=== PATIENT | male | born 1935 | race Caucasian/White ===

== ENCOUNTER 2024-07-13 11:23 | Inpatient (IN) | payer MEDICARE ==
[2024-07-13 12:00] LABS: #Basophils Less than 0.03 10x3/uL (0.0-0.2); #Eosinophils Less than 0.03 10x3/uL (0.0-0.7); %Basophils 0.1 % (0.0-1.0); %Lymphocytes 6.3 % (21.0-51.0); %Monocytes 7.1 % (0.0-10.0); %Neutrophils 85.9 % (42.0-75.0); Hematocrit 53.2 % (42.0-52.0); Hemoglobin 16.7 g/dL (14.0-18.0); Mean Corpuscular HGB CONC 31.4 g/dL (32.0-36.0); Mean Corpuscular Volume 108.4 fL (78.0-98.0); Mean Platelet Volume 10.8 fL (7.4-10.4); Platelet Count 277 10x3/uL (130-400); RBC Distribution Width 14.6 % (11.5-14.5); Red Blood Cell (RBC) Count 4.91 mill/uL (4.70-6.10)
[2024-07-13 12:14] LABS: ALT (SGPT) 253 U/L (8-55); AST (SGOT) 241 U/L (5-34); Albumin 3.6 g/dL (3.4-4.8); Alkaline Phosphatase 105 U/L (40-110); Anion Gap 19 mmol/L (10-20); BUN (Urea Nitrogen) 61 mg/dL (8.4-25.7); Bilirubin, Total 2.2 mg/dL (0.2-1.2); Calc. Creatinine Clearance 0 mL/min (70-130); Calcium 9.1 mg/dL (7.8-10.44); Carbon Dioxide 17 mmol/L (23-31); Chloride 109 mmol/L (98-107); Estimated GFR 25; Globulin 2.6 g/dL (2.4-3.5); Glucose 177 mg/dL (83-110); Potassium 4.3 mmol/L (3.5-5.1); Protein, Total 6.2 g/dL (5.8-8.1); Sodium 141 mmol/L (136-145)
[2024-07-13 12:26] LABS: Troponin I 0.358 ng/mL (< 0.028)
[2024-07-13] MEDS ORDERED: Furosemide 40 MG (4 mL) VIAL ONE (13:30)
[2024-07-13] MEDS ORDERED: Aspirin Chewable 81 MG TAB ONE (13:30)
[2024-07-13] MEDS ORDERED: Nitroglycerin 2% Ointment 1 INCH/1 GM Packet ONE (14:47)
[2024-07-13] MEDS ORDERED: Acetaminophen 650 MG Suppository PR PRN (15:14)
[2024-07-13] MEDS ORDERED: Acetaminophen 325 MG TAB PO PRN (15:14)
[2024-07-13] MEDS ORDERED: Ondansetron ODT 4 MG TAB PO PRN (15:14)
[2024-07-13] MEDS ORDERED: Ondansetron PF 4 MG/2 ML Vial IVP PRN (15:14)
[2024-07-13] MEDS ORDERED: Heparin 25,000 units/D5W 500 ML IVPB SCH (15:15)
[2024-07-13] MEDS ORDERED: Heparin 10,000 UNITS/ 10 ML VIAL SLOW IVP SCH (15:15)
[2024-07-13] MEDS ORDERED: Heparin 25,000 units/D5W 500 ML ONE (15:31)
[2024-07-13] MEDS ORDERED: Heparin 5,000 UNITS/ML VIAL ONE (15:31)
[2024-07-13 16:09] LABS: Troponin I 0.396 ng/mL (< 0.028)
[2024-07-13 16:46] VITALS: BMI 27.8
[2024-07-13] MEDS ORDERED: Enoxaparin 100 MG (1 mL) SYRINGE SC SCH ×2 (17:00→17:15)
[2024-07-13 17:04] LABS: Hematocrit 49.3 % (42.0-52.0); Hemoglobin 16.1 g/dL (14.0-18.0); Platelet Count 261 10x3/uL (130-400)
[2024-07-13] MEDS: Enoxaparin 100 MG (1 mL) SYRINGE SC SCH (17:32)
[2024-07-13] MEDS: Furosemide 40 MG (4 mL) VIAL SLOW IVP SCH (18:26)
[2024-07-13 18:28] LABS: Critical Call Chem Troponin I RESULT DECREASING; Troponin I 0.331 ng/mL (< 0.028)
[2024-07-13] MEDS: Furosemide 20 MG TAB PO SCH (18:40)
[2024-07-14 03:58] LABS: #Basophils Less than 0.03 10x3/uL (0.0-0.2); #Eosinophils Less than 0.03 10x3/uL (0.0-0.7); %Basophils 0.1 % (0.0-1.0); %Lymphocytes 6.4 % (21.0-51.0); %Monocytes 8.1 % (0.0-10.0); %Neutrophils 84.4 % (42.0-75.0); Hematocrit 48.8 % (42.0-52.0); Hemoglobin 16.2 g/dL (14.0-18.0); Mean Corpuscular HGB CONC 33.2 g/dL (32.0-36.0); Mean Corpuscular Hemoglobin 33.4 pg (27.0-31.0); Mean Corpuscular Volume 100.6 fL (78.0-98.0); Mean Platelet Volume 11.6 fL (7.4-10.4); Platelet Count 254 10x3/uL (130-400); RBC Distribution Width 14.6 % (11.5-14.5); Red Blood Cell (RBC) Count 4.85 mill/uL (4.70-6.10)
[2024-07-14 04:10] LABS: Hemoglobin A1c 6.2 % (4.0-6.0)
[2024-07-14 04:13] LABS: Anion Gap 20 mmol/L (10-20); BUN (Urea Nitrogen) 71 mg/dL (8.4-25.7); Calc. Creatinine Clearance 24 mL/min (70-130); Calcium 8.8 mg/dL (7.8-10.44); Carbon Dioxide 17 mmol/L (23-31); Cardiac Risk 4.3 (Less than 4.5); Chloride 107 mmol/L (98-107); Cholesterol 116 mg/dl (< 200 Desired); Estimated GFR 20; Glucose 145 mg/dL (83-110); HDL Cholesterol 27 mg/dL (>60 Neg Risk); LDL Cholesterol, Calculated 71 mg/dL; Magnesium 2.4 mg/dL (1.6-2.6); Potassium 3.9 mmol/L (3.5-5.1); Sodium 140 mmol/L (136-145); Triglycerides 88 mg/dL (Less than 150)
[2024-07-14] MEDS ORDERED: Furosemide 40 MG (4 mL) VIAL SLOW IVP SCH (06:00)
[2024-07-14] MEDS: Furosemide 40 MG (4 mL) VIAL SLOW IVP SCH (06:10)
[2024-07-14 06:25] LABS: Bacteria/HPF None Seen HPF (None Seen); Bilirubin Negative (Negative); Blood, Urine Negative (Negative); Clarity Clear (Clear); Glucose, Urine (Dipstick) Normal (Negative); Ketone, Urine Negative (Negative); Leukocyte Negative Leu/uL (Negative); Nitrite Negative (Negative); Protein, Urine (Dipstick) 100 mg/dL (Neg-Trace); RBC/HPF 0-3 HPF (0-3); Specific Gravity, Urine 1.012 (1.002-1.036); Squamous Epithelial 0-3 HPF (0-3); Urobilinogen Normal mg/dL (Less than 2); WBC/HPF 0-3 HPF (0-3); pH, Urine 5.5 (5.0-9.0)
[2024-07-14] MEDS ORDERED: Sodium Chloride 0.9% 500 ML IV SCH (09:00)
[2024-07-14 09:03] LABS: ALT (SGPT) 741 U/L (8-55); AST (SGOT) 819 U/L (5-34); Albumin 3.6 g/dL (3.4-4.8); Alkaline Phosphatase 92 U/L (40-110); Bilirubin, Total 2.1 mg/dL (0.2-1.2); Protein, Total 5.6 g/dL (5.8-8.1)
[2024-07-14] MEDS: Empagliflozin 10 MG TAB PO SCH (10:36)
[2024-07-14] MEDS: Aspirin Chewable 81 MG TAB PO SCH (10:36)
[2024-07-14] MEDS: Sodium Bicarbonate Tab 325 MG TAB PO SCH (10:36)
[2024-07-14] MEDS: DOBUTamine 500 mg/250 ml 250 ML IVPB SCH (10:39)
[2024-07-14 11:28] LABS: Creatinine, Urine 133.54 mg/dL (63-166); Protein, Urine Random Quant 110 mg/dL (1-14); Sodium, Urine Less than 20 mmol/L (Not Available); Urea Nitrogen, Random Urine 733 mg/dl
[2024-07-14] MEDS: Amiodarone 450 MG in Dextrose 5% in Water 250 ML IVPB SCH (16:55)
[2024-07-14] MEDS: Furosemide 100 MG (10 mL) VIAL SLOW IVP SCH (17:45)
[2024-07-14] MEDS: Metoprolol Tartrate 5 MG (5 mL) VIAL IVP SCH ×2 (17:46→23:49)
[2024-07-14] MEDS: Sodium Chloride 0.9% 250 ML IV SCH (21:37)
[2024-07-15 04:27] LABS: #Basophils Less than 0.03 10x3/uL (0.0-0.2); #Eosinophils Less than 0.03 10x3/uL (0.0-0.7); %Basophils 0.1 % (0.0-1.0); %Lymphocytes 3.8 % (21.0-51.0); %Monocytes 4.5 % (0.0-10.0); %Neutrophils 90.9 % (42.0-75.0); Hematocrit 45.1 % (42.0-52.0); Hemoglobin 14.7 g/dL (14.0-18.0); Mean Corpuscular HGB CONC 32.6 g/dL (32.0-36.0); Mean Corpuscular Volume 101.3 fL (78.0-98.0); Mean Platelet Volume 11.1 fL (7.4-10.4); Platelet Count 218 10x3/uL (130-400); RBC Distribution Width 14.4 % (11.5-14.5); Red Blood Cell (RBC) Count 4.45 mill/uL (4.70-6.10)
[2024-07-15 04:43] LABS: Acetaminophen Less than 10 mcg/mL (Less than 10)
[2024-07-15 04:44] LABS: ALT (SGPT) 596 U/L (8-55); AST (SGOT) 245 U/L (5-34); Albumin 3.3 g/dL (3.4-4.8); Alkaline Phosphatase 77 U/L (40-110); Anion Gap 21 mmol/L (10-20); BUN (Urea Nitrogen) 88 mg/dL (8.4-25.7); Bilirubin, Total 1.4 mg/dL (0.2-1.2); Calc. Creatinine Clearance 19 mL/min (70-130); Carbon Dioxide 17 mmol/L (23-31); Chloride 108 mmol/L (98-107); Estimated GFR 16; Globulin 2.4 g/dL (2.4-3.5); Glucose 194 mg/dL (83-110); Iron 27 ug/dL (65-175); Iron Binding Capacity, Total 241 mcg/dL (261-462); Potassium 3.9 mmol/L (3.5-5.1); Protein, Total 5.7 g/dL (5.8-8.1); Sodium 142 mmol/L (136-145)
[2024-07-15 04:45] LABS: INR-International Normal Ratio 1.8; Prothrombin Time 21.3 sec (12.0-14.7)
[2024-07-15 04:52] LABS: ALT (SGPT) 597 U/L (8-55); AST (SGOT) 243 U/L (5-34); Albumin 3.3 g/dL (3.4-4.8); Alkaline Phosphatase 77 U/L (40-110); Bilirubin, Direct 0.8 mg/dL (0.1-0.3); Bilirubin, Total 1.4 mg/dL (0.2-1.2); Protein, Total 5.6 g/dL (5.8-8.1)
[2024-07-15 04:54] LABS: Immunoglob - G (Total IgG) 630 mg/dL (Not Available); Immunoglob - M (Total IgM) 51 mg/dL (22-240)
[2024-07-15 05:17] LABS: HBsAg Index 0.38 S/CO (0-0.99); Hep A IgM AB NONREACTIVE (NonReactive); Hep A IgM S/CO 1.16 S/CO (0-0.79); Hep B Core IgM Index 0.08 S/CO (0-0.79); Hep B Surf Ag NONREACTIVE S/CO (NonReactive); Hep C IgG Ab NONREACTIVE S/CO (NonReactive); Hep C Index 0.07 S/CO (0-0.79); Hepatitis B Core IgM Abs NONREACTIVE S/CO (NonReactive)
[2024-07-15] MEDS ORDERED: Furosemide 100 MG (10 mL) VIAL SLOW IVP SCH (06:00)
[2024-07-15 06:11] LABS: Ferritin 279.24 ng/mL (22-322)
[2024-07-15 07:15] LABS: CEA, Serum 3.22 ng/mL (< or = 5.0)
[2024-07-15] MEDS: Pantoprazole DR 40 MG TAB PO SCH (08:47)
[2024-07-15] MEDS: Albumin 25% 25 GM (100 mL) BOT IVPB SCH ×2 (08:47→14:58)
[2024-07-15] MEDS: Sodium Bicarbonate 150 MEQ in Sterile Water 1,000 ML IV SCH (10:00)
[2024-07-16 04:54] LABS: #Basophils Less than 0.03 10x3/uL (0.0-0.2); %Eosinophils 0.8 % (0.0-10.0); %Lymphocytes 5.2 % (21.0-51.0); %Monocytes 6.7 % (0.0-10.0); %Neutrophils 86.6 % (42.0-75.0); Hematocrit 41.7 % (42.0-52.0); Mean Corpuscular HGB CONC 33.6 g/dL (32.0-36.0); Mean Corpuscular Hemoglobin 33.9 pg (27.0-31.0); Mean Platelet Volume 11.1 fL (7.4-10.4); Platelet Count 186 10x3/uL (130-400); RBC Distribution Width 14.6 % (11.5-14.5); Red Blood Cell (RBC) Count 4.13 mill/uL (4.70-6.10)
[2024-07-16 05:17] LABS: ALT (SGPT) 356 U/L (8-55); AST (SGOT) 77 U/L (5-34); Albumin 3.9 g/dL (3.4-4.8); Alkaline Phosphatase 58 U/L (40-110); Anion Gap 20 mmol/L (10-20); BUN (Urea Nitrogen) 84 mg/dL (8.4-25.7); Bilirubin, Total 1.6 mg/dL (0.2-1.2); Calc. Creatinine Clearance 22 mL/min (70-130); Carbon Dioxide 21 mmol/L (23-31); Chloride 105 mmol/L (98-107); Estimated GFR 18; Glucose 149 mg/dL (83-110); Potassium 3.3 mmol/L (3.5-5.1); Protein, Total 5.9 g/dL (5.8-8.1); Sodium 143 mmol/L (136-145)
[2024-07-16] MEDS: Potassium Chloride 20 MEQ TAB PO SCH (08:18)
[2024-07-16 09:10] LABS: Magnesium 2.5 mg/dL (1.6-2.6)
[2024-07-16] MEDS: Enoxaparin 100 MG (1 mL) SYRINGE SC SCH (17:18)
[2024-07-16] MEDS: FLU (Fluad Triv) TS24-25 (65UP)/MF59C/PF 45 MCG/0.5 ML Syringe IM ONE (17:26)
[2024-07-17 05:15] LABS: Alkaline Phosphatase 57 U/L (40-110); Bilirubin, Total 1.4 mg/dL (0.2-1.2)
[2024-07-17 05:16] LABS: Calc. Creatinine Clearance 24 mL/min (70-130); Estimated GFR 20
[2024-07-17 05:17] LABS: ALT (SGPT) 266 U/L (8-55); AST (SGOT) 86 U/L (5-34); Albumin 3.6 g/dL (3.4-4.8); Anion Gap 20 mmol/L (10-20); BUN (Urea Nitrogen) 69 mg/dL (8.4-25.7); Calcium 8.1 mg/dL (7.8-10.44); Carbon Dioxide 17 mmol/L (23-31); Chloride 106 mmol/L (98-107); Globulin 2.1 g/dL (2.4-3.5); Glucose 130 mg/dL (83-110); Potassium 4.2 mmol/L (3.5-5.1); Protein, Total 5.7 g/dL (5.8-8.1); Sodium 139 mmol/L (136-145)
[2024-07-17 06:04] LABS: #Basophils Less than 0.03 10x3/uL (0.0-0.2); %Basophils 0.1 % (0.0-1.0); %Eosinophils 1.5 % (0.0-10.0); %Lymphocytes 4.5 % (21.0-51.0); %Monocytes 7.1 % (0.0-10.0); %Neutrophils 86.4 % (42.0-75.0); Hematocrit 42.4 % (42.0-52.0); Mean Corpuscular Hemoglobin 34.1 pg (27.0-31.0); Mean Corpuscular Volume 103.4 fL (78.0-98.0); Mean Platelet Volume 10.9 fL (7.4-10.4); Platelet Count 156 10x3/uL (130-400); RBC Distribution Width 14.7 % (11.5-14.5)
[2024-07-17] MEDS: Spironolactone 25 MG TAB PO SCH (09:00)
[2024-07-17] MEDS: Sodium Bicarbonate Tab 325 MG TAB PO SCH (09:03)
[2024-07-17] MEDS: Amiodarone 200 MG TAB PO SCH ×2 (12:22→20:48)
[2024-07-17 22:54] LABS: Urine Total Volume 1100 mL (250-2400)
[2024-07-17 23:07] LABS: 24 Hr Creatinine 779.9 mg/24 hr (950-2490); Creatinine, Urine 70.9 mg/dL (63-166)
[2024-07-17 23:09] LABS: Protein - 24 Hr 242 mg/24 hr (Less than 300); Protein, Urine 22 mg/dL (1-14)
[2024-07-18 07:40] LABS: #Basophils Less than 0.03 10x3/uL (0.0-0.2); %Eosinophils 1.6 % (0.0-10.0); %Lymphocytes 7.1 % (21.0-51.0); %Monocytes 7.6 % (0.0-10.0); %Neutrophils 83.2 % (42.0-75.0); Mean Corpuscular HGB CONC 32.6 g/dL (32.0-36.0); Mean Corpuscular Hemoglobin 33.7 pg (27.0-31.0); Mean Corpuscular Volume 103.4 fL (78.0-98.0); Mean Platelet Volume 11.1 fL (7.4-10.4); Platelet Count 160 10x3/uL (130-400); RBC Distribution Width 14.6 % (11.5-14.5); Red Blood Cell (RBC) Count 4.45 mill/uL (4.70-6.10)
[2024-07-18 08:07] LABS: ALT (SGPT) 237 U/L (8-55); AST (SGOT) 68 U/L (5-34); Albumin 3.6 g/dL (3.4-4.8); Alkaline Phosphatase 62 U/L (40-110); Anion Gap 17 mmol/L (10-20); BUN (Urea Nitrogen) 68 mg/dL (8.4-25.7); Bilirubin, Total 1.7 mg/dL (0.2-1.2); Calc. Creatinine Clearance 26 mL/min (70-130); Calcium 8.3 mg/dL (7.8-10.44); Carbon Dioxide 29 mmol/L (23-31); Chloride 97 mmol/L (98-107); Estimated GFR 22; Globulin 2.2 g/dL (2.4-3.5); Glucose 147 mg/dL (83-110); Potassium 3.4 mmol/L (3.5-5.1); Protein, Total 5.8 g/dL (5.8-8.1); Sodium 140 mmol/L (136-145)
[2024-07-18 09:03] LABS: Magnesium 2.6 mg/dL (1.6-2.6)
[2024-07-18] MEDS: Dapagliflozin Propanediol 10 MG TAB PO SCH (09:28)
[2024-07-18] MEDS: Potassium Chloride 20 MEQ TAB PO SCH (09:28)
[2024-07-18] MEDS: Spironolactone 25 MG TAB PO SCH (10:19)
[2024-07-19 01:38] LABS: Smooth Muscle Total ABS 2 Units (0-19)
[2024-07-19 03:31] LABS: #Basophils Less than 0.03 10x3/uL (0.0-0.2); %Basophils 0.1 % (0.0-1.0); %Eosinophils 0.7 % (0.0-10.0); %Lymphocytes 5.6 % (21.0-51.0); %Monocytes 7.1 % (0.0-10.0); Hematocrit 46.1 % (42.0-52.0); Mean Corpuscular HGB CONC 32.5 g/dL (32.0-36.0); Mean Corpuscular Hemoglobin 33.5 pg (27.0-31.0); Mean Corpuscular Volume 102.9 fL (78.0-98.0); Mean Platelet Volume 11.6 fL (7.4-10.4); Platelet Count 174 10x3/uL (130-400); RBC Distribution Width 14.5 % (11.5-14.5); Red Blood Cell (RBC) Count 4.48 mill/uL (4.70-6.10)
[2024-07-19 04:04] LABS: ALT (SGPT) 201 U/L (8-55); AST (SGOT) 70 U/L (5-34); Albumin 3.2 g/dL (3.4-4.8); Alkaline Phosphatase 59 U/L (40-110); Anion Gap 16 mmol/L (10-20); BUN (Urea Nitrogen) 66 mg/dL (8.4-25.7); Bilirubin, Total 1.4 mg/dL (0.2-1.2); Calc. Creatinine Clearance 29 mL/min (70-130); Calcium 7.5 mg/dL (7.8-10.44); Carbon Dioxide 26 mmol/L (23-31); Chloride 104 mmol/L (98-107); Estimated GFR 25; Glucose 160 mg/dL (83-110); Potassium 3.5 mmol/L (3.5-5.1); Protein, Total 5.2 g/dL (5.8-8.1); Sodium 142 mmol/L (136-145)
[2024-07-19] MEDS: Spironolactone 100 MG TAB PO SCH (08:45)
[2024-07-19] MEDS ORDERED: Spironolactone 25 MG TAB PO SCH (09:00)
[2024-07-19] MEDS: Spironolactone 25 MG TAB PO SCH (09:36)
[2024-07-19 12:07] LABS: ANA Symphony (Qualitative) Negative (Negative); ANA Symphony (Quantitative) 0.2 Ratio (< 0.7 Negative); EliA Vaculitis New Method **** NEW METHOD ****; Mitochondrial Ab 0.8 U/mL (<4 Negative); dsDNA IgG Antibody 0.9 IU/mL (<10 Negative)
[2024-07-19 16:13] LABS: A/G Ratio 1.9 (0.7-1.7); Albumin 3.7 g/dL (2.9-4.4); Alpha 1 0.2 g/dL (0.0-0.4); Alpha 2 0.5 g/dL (0.4-1.0); Beta 0.7 g/dL (0.7-1.3); Gamma 0.5 g/dL (0.4-1.8); Globulin, Total 1.9 g/dL (2.2-3.9); M-Spike Not Observed g/dL (Not Observed)
[2024-07-20 03:55] LABS: #Basophils Less than 0.03 10x3/uL (0.0-0.2); %Basophils 0.1 % (0.0-1.0); %Eosinophils 0.6 % (0.0-10.0); %Lymphocytes 8.3 % (21.0-51.0); %Monocytes 7.3 % (0.0-10.0); Hematocrit 46.4 % (42.0-52.0); Hemoglobin 15.4 g/dL (14.0-18.0); Mean Corpuscular HGB CONC 33.2 g/dL (32.0-36.0); Mean Corpuscular Hemoglobin 33.3 pg (27.0-31.0); Mean Corpuscular Volume 100.2 fL (78.0-98.0); Mean Platelet Volume 11.2 fL (7.4-10.4); Platelet Count 172 10x3/uL (130-400); RBC Distribution Width 14.5 % (11.5-14.5); Red Blood Cell (RBC) Count 4.63 mill/uL (4.70-6.10)
[2024-07-20 07:36] LABS: ALT (SGPT) 190 U/L (8-55); AST (SGOT) 51 U/L (5-34); Albumin 3.6 g/dL (3.4-4.8); Alkaline Phosphatase 63 U/L (40-110); Anion Gap 20 mmol/L (10-20); BUN (Urea Nitrogen) 81 mg/dL (8.4-25.7); Bilirubin, Total 1.6 mg/dL (0.2-1.2); Calc. Creatinine Clearance 23 mL/min (70-130); Calcium 8.7 mg/dL (7.8-10.44); Carbon Dioxide 23 mmol/L (23-31); Chloride 100 mmol/L (98-107); Estimated GFR 19; Globulin 2.2 g/dL (2.4-3.5); Glucose 161 mg/dL (83-110); Potassium 4.1 mmol/L (3.5-5.1); Protein, Total 5.8 g/dL (5.8-8.1); Sodium 139 mmol/L (136-145)
[2024-07-20] MEDS ORDERED: DOBUTamine 500 mg/250 ml 250 ML IVPB SCH (08:15)
[2024-07-20 14:13] LABS: Albumin, PEP 24hr Ur 62.3 % (NOT ESTAB.); Alpha-1-Globulin, PEP 24h Ur 2.6 % (NOT ESTAB.); Alpha-2-Globulin, PEP 24h Ur 10.5 % (NOT ESTAB.); Beta Globulin, PEP 24h Ur 14.3 % (NOT ESTAB.); Gamma Globulin, PEP 24h Ur 10.3 % (NOT ESTAB.); M-Spike,% PEP 24hr Ur Not Observed % (Not Observed); Protein, PEP 24hr calculated 293 mg/24 hr (30-150); Protein, Urine 26.6 mg/dL (Not Estab.)
[2024-07-20 15:55] VITALS: BMI 29.2
[2024-07-20] MEDS: Morphine 2 MG/ML VIAL SLOW IVP PRN (16:54)
[2024-07-20] MEDS: Lorazepam 2 MG/ML VIAL SLOW IVP PRN (20:23)
[2024-07-21 04:38] LABS: #Basophils Less than 0.03 10x3/uL (0.0-0.2); %Basophils 0.2 % (0.0-1.0); %Eosinophils 0.7 % (0.0-10.0); %Lymphocytes 10.3 % (21.0-51.0); %Monocytes 7.8 % (0.0-10.0); %Neutrophils 80.2 % (42.0-75.0); Hematocrit 49.5 % (42.0-52.0); Hemoglobin 16.1 g/dL (14.0-18.0); Mean Corpuscular HGB CONC 32.5 g/dL (32.0-36.0); Mean Corpuscular Hemoglobin 33.1 pg (27.0-31.0); Mean Corpuscular Volume 101.9 fL (78.0-98.0); Mean Platelet Volume 12.1 fL (7.4-10.4); Platelet Count 194 10x3/uL (130-400); RBC Distribution Width 14.3 % (11.5-14.5); Red Blood Cell (RBC) Count 4.86 mill/uL (4.70-6.10)
[2024-07-21 05:01] LABS: ALT (SGPT) 166 U/L (8-55); AST (SGOT) 33 U/L (5-34); Albumin 3.9 g/dL (3.4-4.8); Alkaline Phosphatase 63 U/L (40-110); Anion Gap 25 mmol/L (10-20); BUN (Urea Nitrogen) 83 mg/dL (8.4-25.7); Calc. Creatinine Clearance 23 mL/min (70-130); Calcium 9.1 mg/dL (7.8-10.44); Carbon Dioxide 19 mmol/L (23-31); Chloride 101 mmol/L (98-107); Estimated GFR 18; Globulin 2.4 g/dL (2.4-3.5); Glucose 155 mg/dL (83-110); Potassium 4.5 mmol/L (3.5-5.1); Protein, Total 6.3 g/dL (5.8-8.1); Sodium 140 mmol/L (136-145)
[2024-07-21 12:13] VITALS: BP 143/101; TEMP 98.5
== END 2024-07-21 14:15 | disposition hospice, home (50) | DRG 280 ==
LOC: ERS 11:23 → SUATTDRO 11:23 → 2SE 16:30 → IMCU/EMU 07-14 15:54 → 2SE 07-19 10:48
PROVIDERS: ADMIT Family Medicine; ATTEND Internal Medicine
PROC: 30233J1 Transfusion of Nonautologous Serum Albumin into Peripheral Vein, Percutaneous Approach (ICD-10-PCS; principal; 2024-07-15)
DX: I13.0 Hypertensive heart and chronic kidney disease with heart failure and stage 1 through stage 4 chronic kidney disease, or unspecified chronic kidney disease (principal); I50.43 Acute on chronic combined systolic (congestive) and diastolic (congestive) heart failure; I21.4 Non-ST elevation (NSTEMI) myocardial infarction; I81 Portal vein thrombosis; J96.01 Acute respiratory failure with hypoxia; N17.9 Acute kidney failure, unspecified; E87.20 Acidosis, unspecified; N13.30 Unspecified hydronephrosis; I48.19 Other persistent atrial fibrillation; I42.0 Dilated cardiomyopathy; I35.0 Nonrheumatic aortic (valve) stenosis; N18.30 Chronic kidney disease, stage 3 unspecified; E87.6 Hypokalemia; Z51.5 Encounter for palliative care; Z66 Do not resuscitate; Z79.82 Long term (current) use of aspirin; Z79.899 Other long term (current) drug therapy
CPT/HCPCS: 36415; 36416; 71045; 74176; 76705; 76770; 80048; 80053; 80061; 80074; 80076; 80143; 81003; 81015; 82105; 82140; 82378; 82570; 82728; 83036; 83516; 83540; 83550; 83735; 83880; 84145; 84155; 84156; 84165; 84166; 84300; 84443; 84484; 84540; 85025; 85520; 85610; 85730; 86015; 86038; 86225; 86301; 87040; 87428; 93005; 93306; 94760; 96374; 97139; 80307; A4217; J0282; J1250; J1644; J1650; J1940; J2060; J2272; J7070; P9047